=== PATIENT | female | born 1960 | race Caucasian/White ===

== ENCOUNTER 2017-11-14 02:46 | Inpatient (IN) | payer OTHER ==
[~2017-11-14] VITALS: Ht 157.5 cm; Wt 75.4 kg
[~2017-11-14 02:46] MED LIST: ADIPEX-P37.5 M1 PO; AMBIEN5 MG PO; ASPIRIN81 M2 PO; CIPRO500 MG PO; DICYCLOMINE HCL20 MG PO; FLAGYL500 MG PO; HYDROXYCHLOROQ200 MG PO; MACROBID100 MG PO; MAXALT10 MG PO; NAPROSYN500 MG PO; NORCO 7.5/321 TABLET PO; PRAVACHOL20 MG PO; RABEPRAZOLE SOD20 MG PO; SYNTHROID88 MCG PO; VITAMIN D32000 UNI1 PO; ZOFRAN ODT8 MG PO
[2017-11-14 03:51] LABS: HEMATOCRIT 48.7 % (36.0-46.0); HEMOGLOBIN 16.1 G/DL (11.9-15.5); MCH 29.9 PG (29.0-34.0); MCHC 33.1 G/DL (30.0-36.0); MCV 90.5 FL (83-99); RBC DIS.WIDTH-SD 42.4 % (39-53); RED BLOOD COUNT 5.38 M/uL (3.80-5.20); WHITE BLOOD COUNT 10.3 K/uL (4.1-10.2)
[2017-11-14 04:02] LABS: ALBUMIN 4.7 g/dL (3.2-4.8); CHLORIDE 106 mEq/L (99-109); POTASSIUM 4.7 mEq/L (3.7-5.4)
[2017-11-14 04:03] LABS: SODIUM 141 mEq/L (136-147)
[2017-11-14 04:05] LABS: GLUCOSE 142 mg/dL (70-99); TOTAL PROTEIN 7.8 g/dL (6.4-8.3)
[2017-11-14 04:07] LABS: TOTAL BILIRUBIN 1.5 mg/dL (0.0-1.0)
[2017-11-14 04:08] LABS: ALKALINE PHOSPHATASE 86 IU/L (3-129); CREATININE 1.2 mg/dL (0.6-1.3); GFR ESTIMATE (CALCULATED) 49 mL/min/
[2017-11-14 04:10] LABS: AST (GOT) 33 IU/L (2-34); UREA NITROGEN (BUN) 20 mg/dL (9-23)
[2017-11-14 04:11] LABS: ALT (GPT) 12 IU/L (3-49)
[2017-11-14 05:26] LABS: PLAT.SUFFICIENCY ADEQUATE; PLATELET COUNT 202 K/uL (156-360)
[2017-11-14 07:44] LABS: APPEARANCE CLEAR ((CLEAR)); BILIRUBIN NEGATIVE; BLOOD NEGATIVE; COLOR AMBER ((YELLOW)); GLUCOSE (STRIP) NEGATIVE; KETONES 20; LEUKOCYTES NEGATIVE; NITRITE NEGATIVE; PROTEIN (STRIP) NEGATIVE; SPECIFIC GRAVITY 1.025 (1.000-1.030); UCUL ADDED? NO
[2017-11-14 12:12] VITALS: BP 105/58
[2017-11-14] MEDS ORDERED: ACIPHEX20 MG PO (14:58)
[2017-11-14] MEDS ORDERED: OSCIMIN SR0.375 MG PO (14:58)
[2017-11-14] MEDS ORDERED: LEXAPRO10 MG PO (15:11)
[2017-11-14] MEDS ORDERED: LYRICA75 MG PO (15:13)
[2017-11-14 15:50] LABS: CHLORIDE 106 MEQ/L (99-109); SODIUM 142 MEQ/L (136-147)
[2017-11-14 15:55] LABS: GFR ESTIMATE (CALCULATED) > 59 mL/min/; UREA NITROGEN (BUN) 18 mg/dL (9-23)
[2017-11-14 15:58] LABS: GLUCOSE 106 mg/dL (70-99); POTASSIUM 3.7 MEQ/L (3.7-5.4)
[2017-11-14 19:33] VITALS: BP 101/58
[2017-11-14 23:09] VITALS: BP 111/56
[2017-11-15 03:13] VITALS: BP 103/50
[2017-11-15 07:50] VITALS: BP 139/75
[2017-11-15 07:55] LABS: HEMATOCRIT 37.3 % (36.0-46.0); HEMOGLOBIN 11.7 G/DL (11.9-15.5); MCH 29.4 PG (29.0-34.0); MCHC 31.4 G/DL (30.0-36.0); MCV 93.7 FL (83-99); PLATELET COUNT 166 K/uL (156-360); RBC DIS.WIDTH-CV 13.1 % (11.8-14.6); RBC DIS.WIDTH-SD 45.2 % (39-53); RED BLOOD COUNT 3.98 M/uL (3.80-5.20); WHITE BLOOD COUNT 6.1 K/uL (4.1-10.2)
[2017-11-15 08:10] LABS: CHLORIDE 110 MEQ/L (99-109); CREATININE 0.9 MG/DL (0.6-1.3); GFR ESTIMATE (CALCULATED) > 59 mL/min/; POTASSIUM 4.4 MEQ/L (3.7-5.4); SODIUM 143 MEQ/L (136-147); UREA NITROGEN (BUN) 14 mg/dL (9-23)
[2017-11-15 08:17] LABS: GLUCOSE 71 mg/dL (70-99)
[2017-11-15 09:10] LABS: C DIFF TOXIN NEGATIVE (NEGATIVE)
[2017-11-15 11:34] VITALS: BP 123/65
[2017-11-15 15:35] VITALS: BP 108/61
[2017-11-15 23:38] VITALS: BP 114/69
[2017-11-16 06:25] LABS: BASOPHIL (%) 0.2 % (0-1); EOSINOPHIL (%) 2.4 % (0-5); EOSINOPHIL COUNT 0.1 K/uL (0-0.3); HEMATOCRIT 34.3 % (36.0-46.0); HEMOGLOBIN 10.9 G/DL (11.9-15.5); IMMATURE GRANULOCYTE (%) 0.2 % (0.0-0.7); LYMPHOCYTE (%) 24.4 % (15-42); MCH 29.9 PG (29.0-34.0); MCHC 31.8 G/DL (30.0-36.0); MONOCYTE (%) 17.1 % (3-12); MONOCYTE COUNT 0.7 K/uL (0-0.8); NEUTROPHIL (%) 55.7 % (45-76); NEUTROPHIL COUNT 2.3 K/uL (1.8-6.4); PLATELET COUNT 153 K/uL (156-360); RBC DIS.WIDTH-CV 13.2 % (11.8-14.6); RBC DIS.WIDTH-SD 45.3 % (39-53); RED BLOOD COUNT 3.65 M/uL (3.80-5.20); WHITE BLOOD COUNT 4.1 K/uL (4.1-10.2)
[2017-11-16 06:45] LABS: ALKALINE PHOSPHATASE 41 IU/L (3-129); ALT (GPT) 6 IU/L (3-49); AST (GOT) 16 IU/L (2-34); CHLORIDE 113 MEQ/L (99-109); CREATININE 0.9 MG/DL (0.6-1.3); GFR ESTIMATE (CALCULATED) > 59 mL/min/; GLUCOSE 93 mg/dL (70-99); POTASSIUM 3.9 MEQ/L (3.7-5.4); SODIUM 144 MEQ/L (136-147); TOTAL BILIRUBIN 0.6 MG/DL (0.0-1.0); TOTAL PROTEIN 4.9 G/DL (6.4-8.3); UREA NITROGEN (BUN) 7 mg/dL (9-23)
[2017-11-16 07:25] VITALS: BP 124/75
[2017-11-16] MEDS ORDERED: FLAGYL500 MG PO (09:43)
[2017-11-16] MEDS ORDERED: CIPRO500 MG PO (09:43)
== END 2017-11-16 12:00 | disposition home or self-care (01) | DRG 392 ==
LOC: EME 02:46 → EDOF 09:50 → 2EASTP 09:50 → 2EAST 09:50 → ENRESERV 09:51 → EDOF 10:06 → ENRESERV 10:53 → 2EASTP 12:06 → ENRESERV 11-15 17:22 → 2EAST 11-15 17:23
PROVIDERS: Emergency Medicine; Hospitalist
DX: A09 Infectious gastroenteritis and colitis, unspecified (principal); E78.5 Hyperlipidemia, unspecified; K57.92 Diverticulitis of intestine, part unspecified, without perforation or abscess without bleeding; E87.2 Acidosis; R21 Rash and other nonspecific skin eruption; M32.9 Systemic lupus erythematosus, unspecified; G89.29 Other chronic pain; E86.0 Dehydration; E03.9 Hypothyroidism, unspecified; Z83.3 Family history of diabetes mellitus; Z82.49 Family history of ischemic heart disease and other diseases of the circulatory system; Z88.5 Allergy status to narcotic agent; Z88.0 Allergy status to penicillin; Z88.2 Allergy status to sulfonamides; Z87.891 Personal history of nicotine dependence
CPT/HCPCS: 74177; 80048; 80048 91; 80053; 81003; 83630; 85025; 85027; 87177; 87329; 87493; 87506; 99281; 99285; J1170; J1885; J1956; J2405; J3010; J7030; S0028; S0030